=== PATIENT | female | born 1950 | race Caucasian/White ===

== ENCOUNTER 2017-01-27 09:51 | Outpatient (CLI) | payer MEDICARE ==
--- NOTE | 2017-01-27 12:23 | BD ---
DEXA BONE DENSITY: History: 66-year-old post-menopausal female for screening. Comparison: 09-30-15 Lumbar Spine: BMD (g/cm2) L1 1.310 T-Score: 2.9 L2 1.078 T-Score: 0.5 L3 1.015 T-Score: -0.6 L4 1.066 T-Score: 0.0 L1-L4 1.111 T-Score: 0.6 Femoral Neck: 0.713 T-Score: -1.3 Total Femur: 0.814 T-Score: -1.1 Impression: Osteopenia. This patient has a 10 year fracture risk of a major osteoporotic fracture of 8.6% and a hip fracture 0.9%. When compared to the prior examination, the bone density in the hip has not mac ed significantly. The bone density is the spine has increased approximately 13%. Please note that th e bone density in the spine may be artifactually elevated given the significant degenerative change in the spine. POS: [facility]
--- NOTE | 2017-01-27 13:46 | MRI ---
MRI LUMBAR SPINE PERFORMED WITHOUT CONTRAST ENHANCEMENT: Date: 01/27/17 HISTORY: Back pain, thoracolumbar kyphosis. COMPARISON: 02/02/16. FINDINGS: There is a stable severe compression fracture with associated kyphotic deformity of the L1 vertebral body. The remainder of the vertebral bodies are normal in height. There are disc desiccation change s without significant disc narrowing. The visualized portions of the kidneys appear unremarkable. T12-L1: Marked compression changes of the L1 vertebral body are noted. This is associated with bony retropul polly of the posterior superior margin of the L1 vertebral body and moderately severe canal narrowing . L1-2: Degenerative facet changes are seen without significant canal or foraminal stenosis. L2-3: Degenerative facet changes without significant canal or foraminal stenosis. L3-4: There are facet and ligamentous hypertrophic changes with some mild bilateral foraminal narrowing. L4-5: There is a moderately severe canal stenosis, mainly related to the facet and ligamentous hypertrophi c changes with some disc bulging. There is some mild right and more pronounced left-sided foraminal stenosis. L5-S1: The canal is mildly stenotic. There are degenerative facet changes present. There is some mild left- sided foraminal narrowing. Left hemilaminectomy changes are noted. IMPRESSION: 1. Stable severe compression deformity of the L1 vertebral body. The compression changes are more r ight-sided and are associated with a kyphoscoliosis centered at this level. Scoliosis is convex to t he left. There is moderate bony retropulsion of the posterior superior margin of the vertebral body, particularly along the right side, and this is associated with a moderately severe degree of canal stenosis. 2. Mild to moderate canal narrowing at L3-4 and moderately severe canal stenosis at L4-5. 3. Postop left hemilaminectomy changes at the L5-S1 level. 4. Areas of foraminal stenosis as discussed above. POS: [facility]
== END 2017-01-27 09:52 | disposition home or self-care (01) ==
LOC: MAMMO 09:51
DX: S32.000A Wedge compression fracture of unspecified lumbar vertebra, initial encounter for closed fracture (principal); M81.0 Age-related osteoporosis without current pathological fracture; M40.205 Unspecified kyphosis, thoracolumbar region; M41.9 Scoliosis, unspecified; M48.061 Spinal stenosis, lumbar region without neurogenic claudication; M85.80 Other specified disorders of bone density and structure, unspecified site
CPT/HCPCS: 72148; 77080

== ENCOUNTER 2017-02-01 06:02 | Inpatient (IN) | payer MEDICARE ==
--- NOTE | 2017-02-01 06:19 | HP ---
HISTORY OF PRESENT ILLNESS: This is a 66-year-old female with longstanding acid reflux an d also irritable bowel syndrome diarrhea. Over the years she has taken Librax 4 times a day, Lomoti l. She has had chronic back pain and . She had some back surgery. The patient take Tylenol every 6 hours. Because of Tylenol with codeine her diarrhea has markedly improved. She does take t he Lomotil anymore. The patient developed abdominal pain, diarrhea, hematochezia recently. She was empirically treated for possible diverticulitis with Flagyl and Cipro. Symptoms improved, but they came back again. The patient has had 2 stool with rectal bleeding over the last 10 days. The last one occurred a week ago. She had a CBC done last Tuesday and the blood count was slightly low at 10 .5. The patient has history of colon polyp. The last colonoscopy was done in 2009. The patient co mes for a colonoscopy because of the hematochezia, history of colon polyp. ALLERGIES: BACTRIM, ERYTHROMYCIN, LATEX. PAST MEDICAL HISTORY: 1. Osteoporosis, osteoarthritis. 2. Hypothyroidism. 3. Chronic acid reflux. 4. Irritable bowel syndrome diarrhea. 5. Hypertension. 6. Hypothyroidism. PHYSICAL EXAMINATION: GENERAL: The patient is a fragile looking female who appears comfortable. VITAL SIGNS: Pulse is 70, blood pressure 120/70. HEENT: Conjunctivae are clear. CARDIOVASCULAR: First and second heart sounds normal. LUNGS: Clear to auscultation. ABDOMEN: Soft to palpate. No organomegaly. She is minimally tender over the left lower quadrant. There is no rebound or guarding. EXTREMITIES: Reveal no edema. ADMITTING DIAGNOSES: Hematochezia, history of colon polyp. PLAN: Colonoscopy.
[2017-02-01 07:31] LABS: #Basophils 0.1 thou/uL (0.0-0.2); #Eosinphils 0.1 thou/uL (0.0-0.7); #Lymphocytes 1.7 thou/uL (1.20-3.40); #Monocytes 1.1 thou/uL (0.11-0.59); #Neutrophils 9.9 thou/uL (1.40-6.50); %Basophils 0.7 % (0.0-1.0); %Eosinophils 0.6 % (0.0-10.0); %Lymphocytes 12.9 % (21.0-51.0); %Monocytes 8.6 % (0.0-10.0); Hematocrit 33.1 % (36.0-47.0); Mean Platelet Volume 5.8 fL (7.4-10.4); Red Blood Cell (RBC) Count 3.71 mill/uL (4.20-5.40); White Blood Cell (WBC) Count 12.8 thou/uL (4.8-10.8)
[2017-02-01] MEDS ORDERED: Lidocaine 1% PF 5 ML VIAL ONE (08:02)
[2017-02-01] MEDS ORDERED: PHENYLEPHRINE-NS 100 MCG/ML 10 ML SYRINGE ONE (08:02)
[2017-02-01] MEDS ORDERED: Propofol 200 MG/20 ML VIAL ONE (08:02)
[2017-02-01] MEDS ORDERED: Ondansetron HCl/PF 4 MG/2 ML Vial ONE (08:49)
--- NOTE | 2017-02-01 09:16 | OP ---
DATE OF PROCEDURE: 02/01/2017 SURGEON: Domingo Hernandez M.D. OPERATIVE PROCEDURE: Colonoscopy with biopsy. PREOPERATIVE DIAGNOSIS: A 66-year-old female with abdominal cramping, diarrhea. She was treated with antibiotics with Cipro and Flagyl. Symptoms improved, but the symptoms came back again . This time she has abdominal pain, cramping and rectal bleeding. The patient has history of colon polyps from before. Her last colonoscopy was more 7 years ago. The patient is undergoing colonosc opy. POSTOPERATIVE DIAGNOSES: 1. Ulceration and colitis high sigmoid colon and descending getting to the point where the splenic flexure area. 2. Retained stool in the transverse colon which could not be transversed. The procedure was termin ated. However, the mucosa beyond the splenic flexure actually appears normal. Also, lower sigmoid colon area, the rectal mucosa appeared normal. The findings have a diagnosis of ischemic colitis. PROCEDURE NOTE: The patient was placed on the left lateral position and was given sedation by the A nesthesia Department. A rectal exam was done before the scope was advanced into the rectum. No les ions were felt on rectal exam. A Pentax video colonoscope was introduced into the rectum and advanc ed into the sigmoid colon area. The rectal mucosa and lower sigmoid colon mucosa appeared normal. The high sigmoid colon, descending colon into the splenic flexure, there is ulcerations and colitis. Also, there appeared to be inflammatory stricture. However, the scope could be advanced into the proximal colon without difficulty. The patient had large amount of solid stool in the transverse co rik. Although water was used to wash out, I could not really get past the area because of the solid stool. Biopsy obtained from the descending colon area. Rectum showed hemorrhoids. DISCHARGE PLANNING: This is a 66-year-old female who came in for colonoscopy because of h ematochezia and abdominal pain and also past history of colon polyp. At colonoscopy she was found t o have ulceration and colitis, left colon. The findings are more suggestive of ischemic colitis. DISCHARGE RECOMMENDATIONS: 1. Ciprofloxacin 500 p.o. twice a day for 7 days. 2. Flagyl 250 four times a day for 7 days. 3. The patient will come back to me in one week's time for follow up.
[2017-02-01] MEDS ORDERED: Promethazine HCl 25 MG/ML VIAL ONE (09:24)
[2017-02-01] MEDS ORDERED: Bisacodyl 10 MG SUPP PR SCH (12:30)
[2017-02-01] MEDS ORDERED: Metoclopramide HCl 10 MG/2 ML VIAL ONE (12:42)
--- NOTE | 2017-02-01 13:44 | RAD ---
PORTABLE AP CHEST: Date: 02-01-17 History: Post op cough, low oxygen saturation. Comparison: 04-21-16 FINDINGS: There is patchy density at the left lung base which could be related to either atelectasis or focal area of pneumonitis. Right lung is clear. Cardiac silhouette and pulmonary vasculature are within no rmal limits for the portable technique of the study. There is suggestion of a hiatal hernia also not ed on the prior exam. There is mild elevation of the right hemidiaphragm. No other interval change. IMPRESSION: 1. Patchy density left lung base. This may represent either atelectasis or developing area of pneumo katerine. Follow up chest x-ray is recommended to ensure resolution. 2. Hiatal hernia. POS: [facility]
--- NOTE | 2017-02-01 13:45 | CT ---
CT ABDOMEN AND PELVIS WITHOUT CONTRAST: HISTORY: Post colonoscopy. Assess for perforation and/or free air. TECHNIQUE: Multiple axial tomograms obtained through the abdomen and pelvis without IV enhancement. Oral contr ast was not given. FINDINGS: Images through the lung bases reveal streaky atelectasis and/or infiltrate in the posterior left magda g base. Aspiration pneumonia should be excluded. There is a fixed diaphragmatic hernia. The liver, spleen, and pancreas appear unremarkable, considering the constraints of an unenhanced ex am. The kidneys are unremarkable with no hydronephrosis. The small bowel loops are of normal caliber. There is gaseous dilatation of the colon. This primarily involves the right and transverse colon. There is abnormal mucosal thickening involving the colon, in the region of the splenic flexure. Fin dings suggest colon wall edema or infiltrative process. There is stool seen within the colon lumen. There is fluid material within this dilated colon with air-fluid levels present. The aorta is of normal caliber. The sigmoid and rectum are decompressed. IMPRESSION: 1. No evidence of free intraperitoneal air. 2. Abnormal mural thickening involving the colon, in the region of the hepatic flexure and upper to mid descending colon. There is some mild surrounding haziness surrounding the lower left colon. C olitis or other mucosal lesions should be excluded. 3. Gaseous dilatation of the right and transverse colon with air-fluid levels present. 4. Decompressed sigmoid and rectum. 5. Abnormal atelectasis and/or infiltrative changes in the posterior left lung base. Aspiration pn eumonia might be considered. 6. Fixed diaphragmatic hernia. POS: [facility]
[2017-02-01] MEDS ORDERED: Acetaminophen/Codeine 30-300mg Tablet PO PRN ×2 (15:38→15:47)
[2017-02-01] MEDS ORDERED: hydrALAZINE 20 MG/ML VIAL SLOW IVP PRN (15:38)
[2017-02-01] MEDS ORDERED: cloNIDine 0.1 MG TAB PO PRN (15:38)
[2017-02-01] MEDS ORDERED: Ondansetron ODT 4 MG TAB PO PRN (15:38)
[2017-02-01] MEDS ORDERED: Ondansetron HCl/PF 4 MG/2 ML Vial IVP PRN (15:38)
[2017-02-01] MEDS ORDERED: Acetaminophen 500 MG TAB PO PRN (15:38)
[2017-02-01] MEDS ORDERED: SUMAtriptan Succinate 50 MG TAB PO PRN (15:45)
[2017-02-01] MEDS ORDERED: SUMAtriptan Succinate 6 MG/0.5 ML VIAL SC PRN (15:45)
--- NOTE | 2017-02-01 15:48 | HP ---
PRIMARY CARE PROVIDER: Dr. Dayron Lemons. PRIMARY CRUISE STAFF MEMBER: Dr. Hernandez. CHIEF COMPLAINT: Abdominal pain. HISTORY OF PRESENT ILLNESS: This is a 66-year-old female who was admitted to [facility] ergoing a colonoscopy after patient complained of abdominal pain, diarrhea and hematochezia. Patien t apparently treated empirically with oral Flagyl and ciprofloxacin with some improvement in symptom s; however, recurrence of diarrhea and hematochezia noted. Patient's last colonoscopy was performed in 2009, undergoing a repeat colonoscopy on 02/01/2017, showing evidence of colitis and ulceration of the high sigmoid region and descending colon. The patient was recommended for continuation of ci profloxacin and Flagyl for approximately 7 days further; however, developed increasing abdominal marcia n, nausea and vomiting in the recovery area. The patient underwent CT imaging of the abdomen and pe lvis after concern for perforation and free air; however, there was no evidence to suggest free intr aperitoneal air on the study. The patient was noted with mural thickening involving the colon at th e region of the hepatic flexure and upper to mid descending colon. Findings favored colitis as prev iously noted on colonoscopy exam. The patient received IV fluids as well as IV Reglan, a Dulcolax s uppository and general supportive care. PAST MEDICAL HISTORY: 1. Chronic migraine headaches. 2. Irritable bowl syndrome. 3. Seasonal allergies. 4. Hypertension. 5. Gastroesophageal reflux. 6. History of chronic cystitis. 7. Anxiety/depression. 8. History of urinary incontinence. PAST SURGICAL HISTORY: 1. Status post tonsillectomy in 1971. 2. Status post appendectomy and ovarian cyst removal in 1975. 3. Status post complete hysterectomy in 1986. 4. Status post cholecystectomy in 1988. 5. Status post carpal tunnel release on the left in 2002. 6. Status post total knee arthroplasty in 2007. 7. Status post sinus surgery with septoplasty in 2009. 8. Status post colonoscopy in 1999, 2004 and 2009 with repeat in 2016. 9. Status post cystoscopy. 10. Status post pelvic reconstruction. 11. Status post left wrist surgery. 12. Status post bladder wash out with biopsy in 2013. CURRENT MEDICATIONS: 1. Tylenol #3, 300 mg/30 mg 1-2 tabs p.o. q.4-6 hours p.r.n. 2. Alendronate 70 mg p.o. q. weekly. 3. Symbicort 80/4.5 two puffs inhaled b.i.d. 4. Calcium with vitamin D3 two tablets p.o. b.i.d. 5. Premarin 0.45 mg p.o. daily. 6. Gabapentin 300 mg p.o. q.i.d. 7. Lactobacillus 1 capsule p.o. daily. 8. Levothyroxine 75 mcg 1 tab p.o. daily. 9. Lisinopril 40 mg p.o. q.a.m. 10. Multivitamin 1 tab p.o. daily. 11. Omeprazole 40 mg p.o. at bedtime. 12. Imitrex p.r.n. 13. Librax 1 capsule p.o. q.i.d. ALLERGIES: LATEX, ERYTHROMYCIN and BACTRIM. FAMILY HISTORY: No inheritable diseases per family report. Father with prostate cancer diagnosed a t 66 years of age. Mother with history of uterine cancer. SOCIAL HISTORY: Patient is , accompanied by her in the recovery area. No current al cohol, tobacco or illicit drug use. REVIEW OF SYSTEMS: Otherwise negative except as stated per HPI: Constitutional: Weight loss or gain, ability to conduct usual activities. Skin: Rash, itching. Eyes: Double vision, pain. ENT/Mouth: Nose bleeding, neck stiffness, pain, tenderness. Cardiovascular: Palpitations, dyspnea on exertion, orthopnea. Respiratory: Shortness of breath, wheezing, cough, hemoptysis, fever or night sweats. Gastrointestinal: Poor appetite, abdominal pain, heartburn, nausea, vomiting, constipation, or diar jeanine. Genitourinary: Urgency, frequency, dysuria, nocturia. Musculoskeletal: Pain, swelling. Neurologic/Psychiatric: Anxiety, depression. Allergy/Immunologic: Skin rash, bleeding tendency. PHYSICAL EXAMINATION: VITAL SIGNS: Currently, blood pressure 116/56, pulse 92, respiratory rate 20, temperature 99.5 degr ees Fahrenheit and O2 saturation 95% on room air. GENERAL APPEARANCE: This is a 66-year-old female, alert and oriented x3, pleasant, conver [place], in no acute distress. HEENT: Pupils are equal, round and reactive to light and accommodation. Extraocular muscles are in tact. No scleral icterus, no conjunctival injection. Nares patent. OP is clear. Teeth in good re pair. NECK: Supple. No cervical adenopathy, no thyromegaly, no carotid bruits, no JVD appreciated. Cerv ical spine with full active and passive range of motion. CHEST: Lungs are clear to auscultation bilaterally. CARDIOVASCULAR: S1 and S2, without noted murmur. ABDOMEN: Protuberant with diminished bowel sounds in all 4 quadrants. Mild tenderness to palpation diffusely. No rebound or guarding noted. No palpable mass. EXTREMITIES: Warm and dry with good turgor. No clubbing, cyanosis or asymmetric edema appreciated. Pulses are palpable distally at the dorsalis pedis, posterior tibial and popliteal arteries bilate rally. Capillary refill less than 2 seconds. NEUROLOGIC: Cranial nerves II-XII are grossly intact. No focal or lateralizing signs appreciated. PERTINENT LABORATORY AND X-RAY FINDINGS: CBC showed a white blood cell count of 12.8, hemoglobin 11 , hematocrit 33, platelet count 492 with 77% neutrophils. CT of the abdomen and pelvis dated 2016 showed no free intraperitoneal air, mural thickening involving the colon in the region of the h epatic flexure and upper to mid descending colon. Gaseous dilation of the right and transverse colo n with air fluid levels noted. Atelectasis of the left lung base. Portable chest x-ray dated 02/01 showed intensity of the left lung base, likely atelectasis. ASSESSMENT AND PLAN: 1. Colitis. The patient will be observed on the medical floor. Continue ciprofloxacin 500 mg b.i. d. with additional Flagyl 250 mg q.i.d. We will continue symptomatic and supportive measures. Intr avenous normal saline at 100 mL per hour. 2. Nausea and vomiting. Continue Zofran 4 mg IV q.6. hours p.r.n. Clear liquids as tolerated. 3. Abdominal pain secondary to #1. Continue symptomatic and supportive measures as outlined previo usly. Serial abdominal exams. 4. Leukocytosis with neutrophilia. Suspect secondarily to colonoscopy with demargination effect. We will repeat CBC in the a.m. 5. Chronic normocytic anemia. No evidence of acute blood loss currently. Repeat CBC in the a.m. 6. Hypertension. Resume home antihypertensive regimen and monitor clinical response. 7. Prophylaxis. Sequential compression devices while in bed. Pepcid 20 mg p.o. b.i.d. 8. Code status is full. Surrogate medical decision maker is patient's spouse.
[2017-02-01] MEDS: Sodium Chloride 0.9% 1,000 ML IV SCH (16:42)
[2017-02-01] MEDS: Gabapentin 300 MG CAP PO SCH ×2 (17:58→20:45)
[2017-02-01] MEDS: chlordiazePOXIDE/Clidinium Bromide Capsule PO SCH ×2 (17:58→20:44)
[2017-02-01] MEDS: metroNIDAZOLE 250 MG in Admixture Fee 2 EACH IVPB SCH (17:59)
[2017-02-01] MEDS: Simethicone Chewable 80 MG TAB PO SCH ×2 (18:00→23:48)
[2017-02-01] MEDS: Mometasone/Formoterol 120 PUFF INHALER INH SCH (19:31)
[2017-02-01] MEDS: Calcium Carbonate + Vit D 1 TAB PO SCH (20:44)
[2017-02-01] MEDS: Famotidine 20 MG TAB PO SCH (20:44)
[2017-02-01] MEDS: Acetaminophen/Codeine 30-300mg Tablet PO SCH (20:44)
[2017-02-01] MEDS: Metoclopramide HCl 10 MG/2 ML VIAL IVP SCH (22:30)
[2017-02-02] MEDS: metroNIDAZOLE 250 MG in Admixture Fee 2 EACH IVPB SCH ×4 (00:07→18:41)
--- NOTE | 2017-02-02 01:32 | PRG ---
DATE OF SERVICE: 02/01/2017 HOSPITALIST NOTE HISTORY OF PRESENT ILLNESS: Ms. Parris Mancini is a very pleasant 66-year-old female hematochezia, diarrhea, abdominal pain. She had a colonoscopy incomplete because of a large amount of solid stool in the transverse colon. The exam was done just for to splenic flexure. The patien t had acute colitis over the left colon. The patient after went to surgery has developed nausea and vomiting and also slight abdominal pain. She was unable to pass any flatus, not able to pass any l iquid stool. The patient was treated with IV Zofran and IV Phenergan. The patient continued to hav e worsening abdominal pain. The patient was sent for a CAT scan noncontrast. The CAT scan of the stephane morales shows evidence of colitis over the left colon which was seen by colonoscopy. The right colon is distended with a large amount of air and also fluid. She also has some stool in the right colon . The patient after receiving Phenergan, she feels better. She is not having any more nausea or re tching. Her abdomen is soft. However, on deep palpation, she is tender over the right colon area. I tried to make her turn on the left and right side and tight her abdomen to compress tight to help her basically air, which is trapped in the right colon. The patient's abdomen is really soft and not really very firm, on palpation and try to expel her gas, she is feeling tender. The patien t has been on Tylenol No. 3 for several years because of chronic back pain. It appears that she has decreasing motility. We will plan to start patient on IV Reglan and also give some Dulcolax suppos itories to try to help her to pass the gas out. She does not pass the gas because of trapped air wi th risk of perforation. The Hospitalist has been consulted for admission, and to follow one night t o see how she does. I reviewed the CAT scan along with Dr. Soy Heredia and I do not see any free air in the abdomen. She has dilation of the right colon with air. Hopefully, with IV Reglan and Du lcolax suppositories, she may able to pass the gas.
[2017-02-02] MEDS: Sodium Chloride 0.9% 1,000 ML IV SCH ×2 (03:38→17:11)
[2017-02-02] MEDS: Levothyroxine Sodium 75 MCG TAB PO SCH (05:38)
[2017-02-02] MEDS: Metoclopramide HCl 10 MG/2 ML VIAL IVP SCH ×3 (06:33→22:07)
[2017-02-02 06:34] LABS: Band 8 % (5-11); Hematocrit 32.9 % (36.0-47.0); Neutrophil 74 % (42-75); Red Blood Cell (RBC) Count 3.68 mill/uL (4.20-5.40)
[2017-02-02 06:42] LABS: ALT (SGPT) 9 U/L (8-55); AST (SGOT) 13 U/L (5-34); Alkaline Phosphatase 72 U/L (40-150); Anion Gap 11 mmol/L (10-20); BUN (Urea Nitrogen) 18 mg/dL (9.8-20.1); Bilirubin, Total 0.3 mg/dL (0.2-1.2); Calc. Creatinine Clearance 103 mL/min (70-130); Calcium 8.4 mg/dL (7.8-10.44); Carbon Dioxide 30 mmol/L (23-31); Chloride 97 mmol/L (98-107); Estimated GFR-MDRD 88; Globulin 2.9 g/dL (2.4-3.5); Protein, Total 6.1 g/dL (6.0-8.3)
[2017-02-02] MEDS: Mometasone/Formoterol 120 PUFF INHALER INH SCH ×2 (07:08→19:20)
--- NOTE | 2017-02-02 07:23 | PRG ---
DATE OF SERVICE: 02/01/2017 TIME: 11:00 p.m. HISTORY OF PRESENT ILLNESS: Ms. Parris Mancini is a very pleasant 66-year-old female with abdominal cramping, diarrhea, hematochezia over the last 3 plus weeks. The patient has been treated with antibiotics. She got better for a while, then she had these symptoms again. She came in for colonoscopy because of hematochezia. Colonoscopy was found to have evidence of ischemic colitis sta rting from the high sigmoid to just above the splenic flexion. The colonoscopy was incomplete becau se of large amount of retained solid stool. The procedure really did not take more than probably 17 minutes. Most of the time was spent trying to wash out and trying to clean the colon. However, th e stool got stuck in the suction port and has to be declogged. The patient developed nausea, vomiti ng on the day of surgery and started having some abdominal pain. She had an abdominal CAT scan, whi ch revealed a dilated right colon with large amount of air. She was given some Dulcolax suppositori es and she had some passage of gas and also some stool on the day of surgery. She was admitted laney use of the above reasons. She had an abdominal CAT scan, which did not show any free air in the abd omen. The patient has been vomiting off and on. She vomited 250 mL of brownish material at close a round 10 o'clock. PHYSICAL EXAMINATION: GENERAL: Appears comfortable. Her abdomen looks more distended than before. While in the room, sh kesha vomited another 500 mL of dark brownish material. It was felt that she would probably benefit by putting the NG tube. NG was placed at bedside and apparently suctioned. About 250 mL of dark brown lew material came out. ABDOMEN: Soft, but distended. She is tender mildly over the left colon and also right colon. Ther e is no rebound or guarding. Abdomen is not firm. The patient presented with ileus, and I am really not sure why. It is possible that she has been on narcotics for a long time, Tylenol #3. I am not sure pathology. The plan is to keep her n.p .o., NG tube to suction, and then reevaluate tomorrow.
[2017-02-02] MEDS ORDERED: Estrogens, Conjugated [Premarin] 0.45 MG PO SCH (09:00)
--- NOTE | 2017-02-02 09:11 | RAD ---
ABDOMEN 2 VIEWS: HISTORY: Abdominal distention. COMPARISON: CT prior day. FINDINGS: The enteric tube is in place with tip at the gastric body. There are numerous dilated loops of terence l throughout the abdomen. There are air fluid levels indicating obstruction. There are old right-sided posterior rib fractures. IMPRESSION: 1. Enteric tube tip at the gastric body. On the supine radiograph mild decrease of gas within the a bdomen from the comparison CT prior day. 2. No definite free intraperitoneal gas. Followup recommended. POS: [facility]
[2017-02-02] MEDS: Acetaminophen/Codeine 30-300mg Tablet PO SCH ×3 (11:09→20:44)
[2017-02-02] MEDS: Calcium Carbonate + Vit D 1 TAB PO SCH ×2 (11:10→20:44)
[2017-02-02] MEDS: Gabapentin 300 MG CAP PO SCH ×4 (11:10→20:45)
[2017-02-02] MEDS: Lactinex Tablet PO SCH (11:10)
[2017-02-02] MEDS: chlordiazePOXIDE/Clidinium Bromide Capsule PO SCH ×4 (11:10→20:45)
[2017-02-02] MEDS: Famotidine 20 MG TAB PO SCH ×2 (11:10→20:45)
[2017-02-02] MEDS: Simethicone Chewable 80 MG TAB PO SCH ×4 (11:11→20:45)
[2017-02-02 13:15] VITALS: BMI 34.9
--- NOTE | 2017-02-02 13:19 | PDOC.PN ---
- Subjective Encounter Start Date: 02/02/17 Encounter Start Time: 13:10 Subjective: f/u for abd pain and ileus post colonoscopy 02/01. Pt noted with ischemic -: colitis conservatively managed. NGT placed after KUB showed ileus/obstruct - Objective Resuscitation Status: Resuscitation Status FULL:Full Resuscitation MAR Reviewed: Yes Vital Signs & Weight: Vital Signs (12 hours) Temp Pulse Resp BP Pulse Ox 02/02/17 10:49 99.7 F H 90 18 134/63 92 L 02/02/17 08:00 98.3 F 100 16 02/02/17 07:00 98.3 F 100 16 135/61 92 L 02/02/17 03:28 99.1 F 93 20 141/64 H 93 L Weight Admit Weight 179 lb Weight 179 lb I&O: 02/01/17 02/02/17 02/03/17 06:59 06:59 06:59 Intake Total 1972 Output Total 1130 Balance 842 Result Diagrams: 02/02/17 05:50 02/02/17 05:50 Additional Labs: Laboratory Tests 02/01/17 02/02/17 07:20 05:50 WBC 12.8 H Plt Count 492 H Neutrophils % 77.2 H Neutrophils % (Manual) 74 Radiology Reviewed by me: Yes (KUB - air fluid levels with dilated loops consistent with obstruct/ileus) Phys Exam - Physical Examination Constitutional: NAD alert, talkative NGT in place HEENT: PERRLA Neck: no nodes, no JVD Respiratory: no wheezing, clear to auscultation bilateral Cardiovascular: RRR Gastrointestinal: soft, non-tender, no distention, positive bowel sounds Musculoskeletal: no edema, pulses present Neurological: normal sensation, moves all 4 limbs Psychiatric: A&O x 3 Skin: normal turgor, cap refill <2 seconds Dx/Plan (1) Bowel obstruction Code(s): K56.609 - UNSP INTESTNL OBST, UNSP TO PARTIAL VERSUS COMPLETE OBST Status: Acute Qualifiers: Intestinal obstruction type: fecal impaction Qualified Code(s): K56.41 - Fecal impaction Comment: NGT for LIWS, NPO, Reglan IV, Dulcolax suppositories, GI following (2) Nausea & vomiting Code(s): R11.2 - NAUSEA WITH VOMITING, UNSPECIFIED Status: Acute Comment: Secondary to #1, antiemetics, NPO, NGT (3) Ischemic colitis Code(s): K55.9 - VASCULAR DISORDER OF INTESTINE, UNSPECIFIED Status: Acute Comment: Continue Cipro 400mg IV q12h, Flagyl 250mg IV q6h (4) Normocytic anemia Code(s): D64.9 - ANEMIA, UNSPECIFIED Status: Acute Comment: Stable currently , continue serial H/H monitoring (5) Leukocytosis Code(s): D72.829 - ELEVATED WHITE BLOOD CELL COUNT, UNSPECIFIED Status: Chronic Comment: Secondary to #1, see above - Plan plan discussed w/ family, continue antibiotics, out of bed/ambulate, DVT proph w /SCDs Stable overall -: Continue NGT with LIWS -: Pain control as indicated -: Continue Ciprofloxacin 400mg IV q12h and Flagyl 250mg IV q6h -: Continue IVF NS 100ml/h * Dulcolax and Reglan * AM lab: CBC, BMP
--- NOTE | 2017-02-02 15:52 | PRG ---
HOSPITAL VISIT NOTE DATE OF SERVICE: 02/02/2017 HISTORY OF PRESENT ILLNESS: This is a 66-year-old with abdominal cramping, hematochezia a nd diarrhea over the last several weeks. She came in for a colonoscopy yesterday. They found to espinoza ve findings of what appears to be ischemic colitis. The exam was incomplete because of retained sto ol. Postprocedure developed abdominal distention, abdominal pain, nausea and vomiting. A stat abdo pedro luis CAT scan done showed markedly dilated right colon with gas and fluid. She had received IV Reg breonna and also Dulcolax suppositories. The patient continues to vomit through the night. Last night, she had an NG tube placement done. The NG tube is draining out closely about 700 mL of dark browni sh material. She is actually passing flatus and also had a stool today. She is overall feeling bet ter and appears comfortable. She had an abdominal series done this morning. The abdominal series a gain showed dilation of the small bowel loops and also large amount of gas. The Radiology impressio n is that she has a possible bowel obstruction. However, she is having stool and also passing flatu s and I believe she mostly ileus. PHYSICAL EXAMINATION: GENERAL: Appears comfortable. VITAL SIGNS: She had a low-grade fever of 99.1 this morning, pulse is 93 and blood pressure 141/64. CARDIOVASCULAR SYSTEM: First and second heart sounds normal. LUNGS: Clear to auscultation. ABDOMEN: Distended, but soft to palpate. Abdomen is mildly tender, less tender than yesterday. Th ere is no rebound or guarding. She has tympanic bowel sounds. LABORATORY DATA: From this morning, WBC 18,000, hemoglobin 10.9, hematocrit 32.9, MCV 89.6, polymor phs 74, bands 8% and lymphocytes 11. Serum chemistries: Sodium is 134, potassium 3.5, chloride 97, bicarbonate 30, glucose 134, BUN is 18, bilirubin is 0.3, AST 13, ALT 9 and alkaline phosphatase 72 . CLINICAL IMPRESSION: Severe ileus of unknown etiology. It is possible that the patient will have u nderlying ischemic bowel disease recurrent for the ileus. She is also on Tylenol No. 3, which could also cause ileus. RECOMMENDATIONS: 1. Continue NG suction. 2. The NG suction is getting less and less, may consider to remove the NG tube. The NG tube , we will leave the NG tube overnight. We will plan for a small bowel series tomorrow.
[2017-02-03] MEDS ORDERED: diphenhydrAMINE 50 MG/ML VIAL IVP SCH (00:15)
[2017-02-03] MEDS: metroNIDAZOLE 250 MG in Admixture Fee 2 EACH IVPB SCH ×3 (00:15→18:08)
[2017-02-03 04:59] LABS: Anion Gap 11 mmol/L (10-20); BUN (Urea Nitrogen) 12 mg/dL (9.8-20.1); Calc. Creatinine Clearance 108 mL/min (70-130); Calcium 8.7 mg/dL (7.8-10.44); Carbon Dioxide 28 mmol/L (23-31); Chloride 102 mmol/L (98-107); Estimated GFR-MDRD Greater than 90
[2017-02-03 05:04] LABS: Band 3 % (5-11); Hematocrit 34.5 % (36.0-47.0); Mean Platelet Volume 5.8 fL (7.4-10.4); Neutrophil 69 % (42-75); White Blood Cell (WBC) Count 11.1 thou/uL (4.8-10.8)
[2017-02-03] MEDS: Sodium Chloride 0.9% 1,000 ML IV SCH (05:45)
[2017-02-03] MEDS: Levothyroxine Sodium 75 MCG TAB PO SCH (06:00)
[2017-02-03] MEDS: Mometasone/Formoterol 120 PUFF INHALER INH SCH ×2 (07:16→19:18)
[2017-02-03] MEDS: Metoclopramide HCl 10 MG/2 ML VIAL IVP SCH (08:09)
--- NOTE | 2017-02-03 09:59 | PDOC.PN ---
- Subjective Encounter Start Date: 02/03/17 Encounter Start Time: 10:00 Subjective: f/u for SBO/Ileus with multiple BM's per pt and nursing. Re-imaging -: with SBFT showed resolution of obstruction. - Objective Resuscitation Status: Resuscitation Status FULL:Full Resuscitation MAR Reviewed: Yes Vital Signs & Weight: Vital Signs (12 hours) Temp Pulse Resp BP Pulse Ox 02/03/17 07:20 98.7 F 88 16 186/77 H 97 Weight Admit Weight 179 lb Weight 179 lb I&O: 02/02/17 02/03/17 02/04/17 06:59 06:59 06:59 Intake Total 1972 0 Output Total 1130 650 Balance 842 -650 Result Diagrams: 02/03/17 04:07 02/03/17 04:07 Additional Labs: Laboratory Tests 02/01/17 02/02/17 02/03/17 07:20 05:50 04:07 WBC 12.8 H 13.0 H Plt Count 492 H 502 H Neutrophils % 77.2 H Neutrophils % (Manual) 74 69 Radiology Reviewed by me: Yes (SBFT - neg for obstruction) Phys Exam - Physical Examination Constitutional: NAD smiling, alert HEENT: PERRLA, oral pharynx no lesions Neck: no JVD, supple Respiratory: no wheezing, clear to auscultation bilateral Cardiovascular: RRR Gastrointestinal: soft, non-tender, no distention, positive bowel sounds Musculoskeletal: no edema, pulses present Neurological: normal sensation, moves all 4 limbs Psychiatric: A&O x 3 Skin: normal turgor, cap refill <2 seconds Dx/Plan (1) Bowel obstruction Code(s): K56.609 - UNSP INTESTNL OBST, UNSP TO PARTIAL VERSUS COMPLETE OBST Status: Acute Qualifiers: Intestinal obstruction type: fecal impaction Qualified Code(s): K56.41 - Fecal impaction Comment: Resolved, d/c NGT, clear liquids (2) Nausea & vomiting Code(s): R11.2 - NAUSEA WITH VOMITING, UNSPECIFIED Status: Acute Comment: Secondary to #1, antiemetics, NPO, NGT, resolved (3) Ischemic colitis Code(s): K55.9 - VASCULAR DISORDER OF INTESTINE, UNSPECIFIED Status: Acute Comment: Change Cipro 500mg BID and Flagyl 250mg po QID (4) Normocytic anemia Code(s): D64.9 - ANEMIA, UNSPECIFIED Status: Acute Comment: Stable currently , continue serial H/H monitoring (5) Leukocytosis Code(s): D72.829 - ELEVATED WHITE BLOOD CELL COUNT, UNSPECIFIED Status: Chronic Comment: Secondary to #1, see above, improving - Plan continue antibiotics, out of bed/ambulate, DVT proph w/SCDs Stable overall -: SBFT confirming resolution -: Clear liquids -: D/C NGT -: OOB/ambulate * Continue Cipro and Flagyl * Likely home in am 02/04/17
--- NOTE | 2017-02-03 11:37 | RAD ---
SMALL BOWEL FOLLOW THROUGH 02/03/17 COMPARISON: CT of the abdomen/pelvis 02/01/17. HISTORY: Small bowel obstruction. Stool retention in the colon. FINDINGS: A small bowel follow through was performed with gastrografin. This is given through the patient's in dwelling NG tube. Contrast passed through the small bowel to the colon by 30 minutes. The contrast w as seen in the rectum by one hour. The small bowel loops are not distended. IMPRESSION: No evidence of small bowel obstruction. POS: SHEEBA
[2017-02-03] MEDS ORDERED: MD-Gastroview 120 ML BOT ONE (13:46)
[2017-02-03] MEDS: Famotidine 20 MG TAB PO SCH ×2 (15:32→21:45)
[2017-02-03] MEDS: Gabapentin 300 MG CAP PO SCH ×4 (15:32→21:43)
[2017-02-03] MEDS: Calcium Carbonate + Vit D 1 TAB PO SCH ×2 (15:32→21:44)
[2017-02-03] MEDS: Acetaminophen/Codeine 30-300mg Tablet PO SCH ×3 (15:32→21:41)
[2017-02-03] MEDS: chlordiazePOXIDE/Clidinium Bromide Capsule PO SCH ×4 (15:32→21:41)
[2017-02-03] MEDS: Simethicone Chewable 80 MG TAB PO SCH ×4 (15:33→22:18)
[2017-02-03] MEDS: Lactinex Tablet PO SCH (15:33)
[2017-02-03] MEDS: metroNIDAZOLE 250 MG TAB PO SCH ×2 (15:59→22:20)
[2017-02-03] MEDS: Ciprofloxacin 500 MG TAB PO SCH (21:43)
[2017-02-04] MEDS: Mometasone/Formoterol 120 PUFF INHALER INH SCH (06:21)
--- NOTE | 2017-02-04 06:46 | PRG ---
DATE OF SERVICE: 02/03/2017 HISTORY OF PRESENT ILLNESS: This is a 66-year-old female with abdominal cramping, diarrhe a, and hematochezia. The patient came for colonoscopy on 02/01/2017. She developed post-p rocedure abdominal distension, abdominal pain, nausea, and vomiting. Apparently, she developed rolando re ileus and it is not very clear whether she developed ileus after colonoscopy. She had noncontras t CAT scan of abdomen to rule out any pathology. The noncontrast CAT scan showed markedly dilated r ight colon and also large amount of gastric fluid in the right colon. The left colon did show colit is. The patient had several episodes of vomiting and has had an NG tube placed two nights ago. She put large amount of NG aspirate. The patient is on IV Reglan. The patient has Gastrografin study today. The Gastrografin study does not show any bowel obstruction and she had multiple stools after the Gastrografin study. She is actually feeling better. She was on a full liquid diet and she scarlett erated diet well. She is supposed to get a regular diet, but patient did not feel like eating and d id not have anything more than liquids and Jell-O. PHYSICAL EXAMINATION: GENERAL: Appears comfortable. VITAL SIGNS: Stable. Afebrile, pulse is 94, blood pressure 115/67. CARDIOVASCULAR SYSTEM: First and second heart sounds normal. LUNGS: Clear to auscultation. ABDOMEN: Soft and nontender, nondistended. Active bowel sounds. LABORATORY DATA: WBC 11,100, hemoglobin 11.1. Chem-7 is normal. BUN is 12, creatinine 0.64. The biopsy of the left colon shows ulceration and inflammation. CLINICAL IMPRESSION: 1. Colitis, left colon, most likely ischemic. 2. Severe ileus, etiology unclear, resolved. RECOMMENDATIONS: 1. Diet as tolerated. 2. May discharge tomorrow if she has no new problems.
[2017-02-04] MEDS: Levothyroxine Sodium 75 MCG TAB PO SCH (07:11)
[2017-02-04 07:16] VITALS: BP 147/70; TEMP 98.1
[2017-02-04] MEDS: Gabapentin 300 MG CAP PO SCH ×2 (08:43→13:21)
[2017-02-04] MEDS: Famotidine 20 MG TAB PO SCH (08:43)
[2017-02-04] MEDS: Ciprofloxacin 500 MG TAB PO SCH (08:43)
[2017-02-04] MEDS: metroNIDAZOLE 250 MG TAB PO SCH (08:44)
[2017-02-04] MEDS: Acetaminophen/Codeine 30-300mg Tablet PO SCH (08:44)
[2017-02-04] MEDS: Lactinex Tablet PO SCH (08:45)
[2017-02-04] MEDS: Simethicone Chewable 80 MG TAB PO SCH ×2 (08:46→13:21)
[2017-02-04] MEDS: chlordiazePOXIDE/Clidinium Bromide Capsule PO SCH ×2 (10:11→13:21)
[2017-02-04] MEDS: Calcium Carbonate + Vit D 1 TAB PO SCH (12:28)
--- NOTE | 2017-02-04 14:07 | DIS ---
DATE OF ADMISSION: 02/01/2017 DATE OF DISCHARGE: 02/04/2017 DISCHARGE DIAGNOSES: 1. Status post partial small bowel obstruction/ileus. 2. Ischemic colitis, improved. 3. Chronic normocytic anemia, stable. 4. Leukocytosis secondary to #1, resolved. CONSULTATIONS: Dr. Hernandez with GI Service. PERTINENT LAB AND X-RAY FINDINGS: Sodium ranged between 134-137. LFTs within normal limits. CBC s howed a white blood cell count ranging between 11.1-13.0, hemoglobin ranged between 10.9-11.1. CT o f the abdomen and pelvis dated 02/01/2017 showed no evidence of free intraperitoneal air. Abnormal mural thickening involving the colon in the region of the hepatic flexure and mid descending colon. Gaseous dilation of the right and transverse colon with air fluid levels. Large intestine patholog y biopsy dated 02/01/2017 showed ulceration with acute inflammation, no atypia or malignancy identif ied. KUB dated 02/02/2017 showed numerous dilated loops of bowel throughout the abdomen. Small bow el follow through dated 02/03/2017 showed no evidence of bowel obstruction. Contrast passed through the small bowel to the colon within 30 minutes. HOSPITAL COURSE: The patient was admitted after initially undergoing colonoscopy secondary to ische isra colitis. Post-colonoscopy, the patient developed increasing nausea, vomiting, abdominal pain wi th evidence of ileus/partial small-bowel obstruction. The patient was placed on n.p.o. status and u nderwent nasogastric tube placement for abdominal decompression. The patient received IV fluids, IV narcotics and general supportive measures. The patient also received a bowel regimen to include Du lcolax suppositories and IV Reglan with resolution of the bowel obstruction, likely mechanical in na ture due to retained fecal material. The patient overall clinically stabilized with small bowel fol low through confirming patent bowels on 02/03/2017. NG tube was removed and the patient was resumed on regular dietary intake without difficulty. Overall, the patient remained clinically stable for the remainder of the hospital course and ready for discharge 02/04/2017. DISCHARGE MEDICATIONS: 1. Tylenol #3, 300/30 mg 1 tab p.o. t.i.d. p.r.n. 2. Alendronate 70 mg p.o. x7 days. 3. Symbicort 80/4.5 two puffs inhaled b.i.d. 4. Calcium citrate 2 tablets p.o. b.i.d. 5. Ciprofloxacin 500 mg 1 tab p.o. b.i.d. x7 days. 6. Flagyl 250 mg p.o. t.i.d. x7 days. 7. Premarin 0.45 mg p.o. daily. 8. Gabapentin 300 mg p.o. q.i.d. 9. Lactobacillus 1 capsule p.o. daily. 10. Synthroid, 75 mcg p.o. daily. 11. Lisinopril 40 mg p.o. q.a.m. 12. Multivitamin 1 p.o. daily. 13. Omeprazole 40 mg p.o. at bedtime. 14. Imitrex 100 mg p.o. every 2 hours p.r.n. headaches. 15. Librax 1 capsule p.o. q.i.d. FOLLOWUP: The patient may follow up with her primary care provider, Dr. Dayron Lemons, within 7 days of discharge. Patient will follow up with Dr. Hernandez with GI Service and to call his office for appointment time and date. CONDITION ON DISCHARGE: Stable. ACTIVITY: Ad emily. DIET: Heart healthy. CODE STATUS: Full. DISPOSITION: Home on 02/04/2017.
--- NOTE | 2017-02-05 09:52 | PRG ---
DATE OF SERVICE: 02/04/2017 HISTORY OF PRESENT ILLNESS: Ms. Parris Mancini is a very pleasant 66-year-old hospitalized for a colonoscopy 4 days ago. Colonoscopy showed findings of ischemic colitis. The patient develo ped abdominal pain, nausea, and vomiting post colonoscopy. The patient has been [facility] above reason. The patient continues to vomit a large amount of brownish material. She had an NG tube placement done on Tuesday night. The patient continued to pass large amount of gastric outp ut. She had a Gastrografin study which revealed no SBO and she was having multiple loose stools. T he NG was removed yesterday. She was continued on full-liquid diet . I saw her this morning d uring breakfast. She is actually eating very well. She has no abdominal pain, no nausea, no vomiti ng. She is still having loose stools. PHYSICAL EXAMINATION: GENERAL: Appears comfortable. VITAL SIGNS: Stable. CARDIOVASCULAR: First and second heart sounds normal. LUNGS: Clear to auscultation. ABDOMEN: Soft to palpate. Abdomen is nontender. She has active bowel sounds. CLINICAL IMPRESSION: 1. Ischemic colitis for colonoscopy. 2. Severe ileus postprocedure, etiology unclear. Although, the abdominal series showed dilated bow el, Gastrografin study did not show any small bowel obstruction. RECOMMENDATIONS: From GI standpoint, she can be discharged home. I believe she will not need any a ntibiotics. The patient will come back to see me early next week.
== END 2017-02-04 13:45 | disposition home or self-care (01) | DRG 388 ==
LOC: SDC 06:02 → ONC 13:55 → OBSVTOIN 13:55
PROVIDERS: ADMIT Family Medicine; ATTEND Family Medicine
PROC: 0DBM8ZX Excision of Descending Colon, Via Natural or Artificial Opening Endoscopic, Diagnostic (ICD-10-PCS; principal; 2017-02-01)
DX: K56.690 Other partial intestinal obstruction (principal); K55.039 Acute (reversible) ischemia of large intestine, extent unspecified; K92.1 Melena; K64.8 Other hemorrhoids; Z87.19 Personal history of other diseases of the digestive system; D64.9 Anemia, unspecified; M81.0 Age-related osteoporosis without current pathological fracture; M19.90 Unspecified osteoarthritis, unspecified site; K21.9 Gastro-esophageal reflux disease without esophagitis; I10 Essential (primary) hypertension; E03.9 Hypothyroidism, unspecified; K58.0 Irritable bowel syndrome with diarrhea; G43.909 Migraine, unspecified, not intractable, without status migrainosus; F41.8 Other specified anxiety disorders; Z79.891 Long term (current) use of opiate analgesic; G89.29 Other chronic pain; M54.9 Dorsalgia, unspecified; K56.41 Fecal impaction
CPT/HCPCS: 36415; 71010; 74020; 74176; 74250; 80048; 80053; 85007; 85025; 85027; 88305; 94664; 96374; 96375; J0744; J1200; J2001; J2405; J2550; J2704; J2765

== ENCOUNTER 2018-01-24 11:02 | Outpatient (CLI) | payer MEDICARE | END 2018-01-24 11:03 | disposition home or self-care (01) | LOC: BICMAMMO 11:02 | PROVIDERS: ATTEND Internal Medicine | DX: Z12.31 Encounter for screening mammogram for malignant neoplasm of breast (principal); R92.1 Mammographic calcification found on diagnostic imaging of breast | CPT/HCPCS: 77063; 77067 ==

== ENCOUNTER 2018-12-27 10:09 | Outpatient (CLI) | payer MEDICARE ==
--- NOTE | 2018-12-27 13:51 | BD ---
Exam: DEXA Bone Density 12/27/18 INDICATIONS: Postmenopausal osteoporosis screening. Both hips are evaluated. Spine is not imaged due to prior lumbar surgery. Right femur BMD (g/cm2) T-SCORE Right femoral neck 0.725 -1.1 Total femur: 0.869 -0.6 Left femoral neck 0.747 -0.9 Total Femur: 0.931 -0.1 Left femoral density 01/27/17: 0.814 09/30/15: 0.821 Impression: 1. Bone mineral density of the left femoral neck is within normal range. 2. Bone mineral density of the right femoral neck indicates osteopenia. POS: OFF
== END 2018-12-27 10:10 | disposition home or self-care (01) ==
LOC: BICMAMMO 10:09
PROVIDERS: ATTEND Internal Medicine Rheumatology
DX: Z13.820 Encounter for screening for osteoporosis (principal); M19.072 Primary osteoarthritis, left ankle and foot; M85.851 Other specified disorders of bone density and structure, right thigh
CPT/HCPCS: 77080

== ENCOUNTER 2019-01-25 10:47 | Outpatient (CLI) | payer MEDICARE ==
--- NOTE | 2019-01-25 13:35 | MMO ---
Bilateral MAMMO Bilat Screen [facility]. CLINICAL HISTORY: Patient is 68 years old and is seen for screening. The patient has no family history of breast cancer. The patient has no personal history of cancer. VIEWS: The views performed were: bilateral craniocaudal with tomosynthesis and bilateral mediolateral oblique with tomosynthesis. FILMS COMPARED: The present examination has been compared to prior imaging studies performed at [facility] on 01/25/2014, 01/17/2015, 01/17/2017 and 01/24/2018. This study has been interpreted with the assistance of computer-aided detection. MAMMOGRAM FINDINGS: There are scattered fibroglandular densities. There are no suspicious masses, suspicious calcifications, or new areas of architectural distortion. IMPRESSION: THERE IS NO MAMMOGRAPHIC EVIDENCE OF MALIGNANCY. A ROUTINE FOLLOW-UP MAMMOGRAM IN 1 YEAR IS RECOMMENDED. THE RESULTS OF THIS EXAM WERE SENT TO THE PATIENT. ACR BI-RADS Category 1 - Negative MAMMOGRAPHY NOTE: 1. A negative mammogram report should not delay a biopsy if a dominant of clinically suspicious mass is present. 2. Approximately 10% to 15% of breast cancers are not detected by mammography. 3. Adenosis and dense breasts may obscure an underlying neoplasm. Reported by: MCKAY GAN MD Electonically Signed: [id number]
== END 2019-01-25 10:48 | disposition home or self-care (01) ==
LOC: BICMAMMO 10:47
PROVIDERS: ATTEND Internal Medicine
DX: Z12.31 Encounter for screening mammogram for malignant neoplasm of breast (principal)
CPT/HCPCS: 77063; 77067

== ENCOUNTER 2019-03-18 08:51 | Emergency (ER) | payer MEDICARE ==
[2019-03-18] MEDS ORDERED: Acetaminophen/Codeine 30-300mg Tablet ONE (10:15)
[2019-03-18] MEDS ORDERED: Adacel (T-DAP) 0.5 ML SYRINGE ONE (10:15)
--- NOTE | 2019-03-18 10:21 | CT ---
CT facial bones: Multiple axial tones obtained through facial bones without contrast. Multiplanar reconstruction. INDICATIONS:Fall with injury to face COMPARISON:None FINDINGS: Nasal bones appear intact. Orbits appear intact. zygoma appear intact. Small air-fluid level in the right maxillary antrum. Mucosal edema in the right maxillary sinus posto p changes at the right antral meatal complex. Maxilla appears intact. Mandible appears intact. Mild subcutaneous edema over the left mandibular region. IMPRESSION: No evidence of facial bone fracture.
--- NOTE | 2019-03-18 10:26 | RAD ---
EXAM: Right knee: 3 views INDICATIONS: Fall with injury to knee COMPARISON: None. FINDINGS: Right knee prosthesis. Components appear in adequate position and alignment. No fracture id entified. No joint effusion. IMPRESSION: No acute finding
== END 2019-03-18 10:59 | disposition home or self-care (01) ==
LOC: ERS 08:51
DX: S01.511A Laceration without foreign body of lip, initial encounter (principal); M25.561 Pain in right knee; E03.9 Hypothyroidism, unspecified; I10 Essential (primary) hypertension; M19.90 Unspecified osteoarthritis, unspecified site; Z79.899 Other long term (current) drug therapy
CPT/HCPCS: 70486; 90471; 90715

== ENCOUNTER 2020-03-06 13:29 | Outpatient (CLI) | payer MEDICARE ==
--- NOTE | 2020-03-06 16:29 | BD ---
Exam: DEXA Bone Density 03/06/20 HISTORY: Age related osteoporosis. COMPARISON: None. FINDINGS: BMD (g/cm2) T-SCORE Z-SCORE Right femoral neck: 0.774 -0.7 1.3 Total: 0.883 -0.5 1.1 Left femoral neck: 0.782 -0.6 1.3 Total: 0.913 -0.2 1.3 WHO classification: Normal. Impression: Normal bone mineral density. POS: AH
== END 2020-03-06 13:30 | disposition home or self-care (01) ==
LOC: BICMAMMO 13:29
PROVIDERS: ATTEND Internal Medicine Rheumatology
DX: M81.0 Age-related osteoporosis without current pathological fracture (principal)
CPT/HCPCS: 77080